=== PATIENT | male | born 1995 | race Caucasian/White ===

== ENCOUNTER 2019-03-28 01:12 | Inpatient (IN) | payer OTHER ==
[~2019-03-28] VITALS: Ht 182.9 cm; Wt 72.6 kg
[2019-03-28 01:46] LABS: APPEARANCE CLEAR (CLEAR); BILIRUBIN NEGATIVE (NEGATIVE); COLOR YELLOW (YELLOW); GLUCOSE NEGATIVE (NEGATIVE); KETONE LARGE mg/dL (NEGATIVE); NITRITE NEGATIVE (NEGATIVE); PROTEIN TRACE mg/dL (NEGATIVE); UROBILINOGEN NORMAL (NORMAL)
[2019-03-28 01:51] LABS: BACTERIA FEW /hpf (NEGATIVE); EPITHELIAL CELLS 0-5 /hpf (0-5); MUCUS >1+ /lpf (NONE SEEN); RED CELLS - URINE 0-5 /hpf (0-5); WHITE CELLS - URINE 0-5 /hpf (NEGATIVE)
[2019-03-28 01:52] LABS: BASOPHILS 0.1 % (0-2); EOSINOPHILS 0.9 % (0-7); HEMATOCRIT 44.5 % (42.0-54.0); HEMOGLOBIN 15.8 g/dL (13.5-17.5); IMMATURE GRANULOCYTES 0.2 % (0-5); LYMPHOCYTES 12.7 % (15-50); MCH 32.2 pg (26.0-34.0); MCHC 35.5 g/dL (31.0-37.0); MCV 90.8 fL (80.0-100.0); MEAN PLATELET VOLUME 8.9 fL (7.4-10.4); MONOCYTES 9.9 % (2-11); NEUTROPHILS 76.2 % (40-80); PLATELET COUNT 208 10x3/uL (130-400); RDW 13.1 % (11.5-14.5); WBC 12.8 10x3/uL (4.8-10.8)
[2019-03-28 02:04] LABS: CALC OSMOLALITY 268 mosm/kg (275-300); CALCIUM 8.9 mg/dL (8.5-10.1); CARBON DIOXIDE 25.9 mmol/L (21.0-32.0); CHLORIDE - SERUM 100 mmol/L (98-107); CREATININE - SERUM 0.9 mg/dL (0.6-1.3); GLUCOSE 108 mg/dL (74-106); POTASSIUM - SERUM 3.3 mmol/L (3.5-5.1); SODIUM 135 mmol/L (136-145); UREA NITROGEN 8 mg/dL (7-18); eGFR NON AFRICAN AMERICAN > 90 mL/min (90-120)
[2019-03-28 02:09] LABS: ALBUMIN 3.9 g/dL (3.4-5.0); ALKALINE PHOSPHATASE 56 U/L (30-120); ALT (SGPT) 30 U/L (10-68); BILIRUBIN - TOTAL 0.95 mg/dL (0.2-1.3); LIPASE 69 U/L (73-393); PROTEIN - SERUM 7.6 g/dL (6.4-8.2)
--- NOTE | 2019-03-28 02:20 | NUR ---
PT AMBULATING BACK TO ROOM AFTER USING RESTROOM. REPORTS URINATING. SLOW, STEADY GAIT NOTED. MEDICATIONS GIVEN PER EMAR. PT DENIES CURRENT NEEDS. EDP IN ROOM. WILL CONTINUE TO MONITOR.
[2019-03-28 03:41] VITALS: BP 137/65
--- NOTE | 2019-03-28 03:41 | NUR ---
PT RESTING ON BED, WATCHING TV. LIGHTS LOW FOR PT COMFORT. PT AND MOTHER UPDATED ON PLAN OF CARE.
[2019-03-28 05:09] VITALS: BP 106/59; BMI 21.7
--- NOTE | 2019-03-28 07:54 | NUR ---
ALERT AND ORIENTED. LUNGS CLEAR BILATERALLY. HEART SOUNDS S1 AND S2 HEARD IN ALL JADE. BOWEL SOUNDS ACTIVE X 4. IV TO RFA PATENT WITHOUT REDNESS. SKIN INTACT WITHOUT REDNESS. BED LOW. CALL KEYES AND PERSONAL ITEMS IN REACH. WILL CONTINUE TO MONITOR.
[2019-03-28 09:28] VITALS: BP 104/50
--- NOTE | 2019-03-28 11:40 | NUR ---
RESTING IN BED. DENIES NEEDS. WILL CONTINUE TO MONITOR.
[2019-03-28 12:45] VITALS: BP 107/74
[2019-03-28 17:17] VITALS: BP 120/76
--- NOTE | 2019-03-28 18:02 | NUR ---
RESTING IN BED. DENIES NEEDS. CALL KEYES AND PERSONAL ITEMS IN REACH.
[2019-03-28 23:09] VITALS: BP 123/68
--- NOTE | 2019-03-29 02:35 | NUR ---
PT RESTING IN BED. EYES CLOSED. NO SIGNS OF DISTRESS. BREATHING EVEN AND UNLABORED. IV SITE RT FA DRESSING CLEAN DRY AND INTACT. NO SIGNS OF INFECTION OR INFULTRATION. LUNG SOUNDS CLEAR. BOWEL SOUNDS ACTIVE. SKIN CLEAN DRY AND INTACT. ABD TENDERNESS. WILL CONTINUE PLAN OF CARE. CALL LIGHT IN REACH. BED LOWERED AND LOCKED. BED RAILS UPX2.
[2019-03-29 02:53] VITALS: BP 109/61
--- NOTE | 2019-03-29 05:02 | NUR ---
I have reviewed this patient and I concur with the Shift Assessment completed by the Licensed Practical Nurse today this shift.
[2019-03-29 05:22] LABS: BASOPHILS 0.1 % (0-2); EOSINOPHILS 0.4 % (0-7); HEMATOCRIT 43.5 % (42.0-54.0); HEMOGLOBIN 15.1 g/dL (13.5-17.5); IMMATURE GRANULOCYTES 0.3 % (0-5); LYMPHOCYTES 11.3 % (15-50); MCH 32.4 pg (26.0-34.0); MCHC 34.7 g/dL (31.0-37.0); MEAN PLATELET VOLUME 9.5 fL (7.4-10.4); MONOCYTES 9.2 % (2-11); NEUTROPHILS 78.7 % (40-80); PLATELET COUNT 202 10x3/uL (130-400); RBC 4.66 10x6/uL (4.20-6.10); RDW 13.4 % (11.5-14.5); WBC 11.6 10x3/uL (4.8-10.8)
[2019-03-29 05:41] LABS: MCV 93.3 fL (80.0-100.0)
[2019-03-29 05:47] LABS: ALBUMIN 3.2 g/dL (3.4-5.0); ALKALINE PHOSPHATASE 53 U/L (30-120); ALT (SGPT) 24 U/L (10-68); AMYLASE - SERUM 21 U/L (25-115); BILIRUBIN - TOTAL 0.55 mg/dL (0.2-1.3); CALC OSMOLALITY 274 mosm/kg (275-300); CALCIUM 9.2 mg/dL (8.5-10.1); CARBON DIOXIDE 25.9 mmol/L (21.0-32.0); CHLORIDE - SERUM 102 mmol/L (98-107); CREATININE - SERUM 0.9 mg/dL (0.6-1.3); GLUCOSE 78 mg/dL (74-106); PROTEIN - SERUM 7.3 g/dL (6.4-8.2); SODIUM 139 mmol/L (136-145); UREA NITROGEN 6 mg/dL (7-18); eGFR NON AFRICAN AMERICAN > 90 mL/min (90-120)
[2019-03-29 05:54] LABS: LIPASE 105 U/L (73-393); POTASSIUM - SERUM 4.4 mmol/L (3.5-5.1)
[2019-03-29 05:57] VITALS: BP 99/62
--- NOTE | 2019-03-29 07:45 | NUR ---
ALERT AND ORIENTED. LUNGS CLEAR BILATERALLY. HEART SOUNDS S1 AND S2 HEARD IN ALL JADE. BOWEL SOUNDS ACTIVE X 4. SKIN INTACT WITHOUT REDNESS. IV TO RFA PATENT WITHOUT REDNESS. DENIES NEEDS. BED LOW. CALL KEYES AND PERSONAL ITEMS IN REACH. WILL CONTINUE TO MONITOR.
[2019-03-29 09:04] VITALS: BP 128/68
--- NOTE | 2019-03-29 10:56 | MORECARE ---
CASE MANAGEMENT DISCHARGE SUMMARY PATIENT: KARLY PLATA UNIT: [id number] ADM DATE: 03/28/19 AGE: 23 : [birth year] SEX: M ROOM/BED: D.2220 AUTHOR: EDWARD,DOC PHYSICIAN: REFERRING PHYSICIAN: CHARLOTTE TRIANA MD DATE OF SERVICE: 03/29/19 Discharge Plan Patient Name: KARLY PLATA Facility: [facility]:[place] : 1995 Planned Disposition: Home or Self Care Anticipated Discharge Date: Discharge Date: Expected LOS: Initial Reviewer: [email or web address] Initial Review Date: 03/28/2019 Generated: 03/29/19 11:56 am Comments DCP- Discharge Planning Updated by [email or web address]: Sydney Willingham on 03/29/19 9:[address] Patient Name: KARLY PLATA Admission Status: ER Accout number: [id number] Admission Date: 03-28-2019 : 1995 Admission Diagnosis: Attending: CHARLOTTE TRIANA Current LOS: 1 Anticipated DC Date: Planned Disposition: Home or Self Care Primary Insurance: [employer] PPO Discharge Planning Comments: CM met with patient to complete initial dc planning assessment. CM educated patient on the CM role and verbal consent given by patient to complete assessment. Patient lives at home by himself where he is independent with his care. At discharge patient plans to go to his mothers home to recover and feels this is a safe discharge. CM discussed availability of home health, rehab services, and medical equipment. Patient denied known discharge needs at this time. CM will continue to follow and will assist as needed with dc plans/needs. Software Firmware Engineer: Sydney Willingham DCPIA - Discharge Planning Initial Assessment Updated by [email or web address]: Sydney Willingham on 03/29/19 10:51 am * Is the patient Alert and Oriented? Yes * How many steps to enter\exit or inside your home? * PCP NONE * Pharmacy [facility] [address] * Preadmission Environment Home Alone * ADLs Independent * Equipment None * List name and contact numbers for known caregivers / representatives who currently or will assist patient after discharge: ZACH (MOTHER)[phone] * Verbal permission to speak to the caregivers and representatives has been obtained from the patient. N/A * Community resources currently utilized None * Additional services required to return to the preadmission environment? No * Can the patient safely return to the preadmission environment? Yes * Has this patient been hospitalized within the prior 30 days at any hospital? No Patient Name: KARLY PLATA Page [phone] at 1056 All edits/amendments must be made on the electronic document DICTATION DATE: 03/29/191055 VENTILATION EQUIPMENT TENDER: [email or web address] 03/29/19 1056 RPT#: [id number] DC DATE: STATUS: ADM IN [facility] [address] [place] [address] END OF REPORT
[2019-03-29 13:00] VITALS: Ht 182.9 cm; Wt 72.6 kg
[2019-03-29 13:41] VITALS: BP 118/71
[2019-03-29 17:51] VITALS: BP 120/66
--- NOTE | 2019-03-29 18:18 | NUR ---
RESTING IN BED. DENIES NEEDS. BED LOW. CALL KEYES AND PERSONAL ITEMS IN REACH.
[2019-03-29 20:00] VITALS: BP 123/75
--- NOTE | 2019-03-30 03:32 | NUR ---
PT RESTING IN BED. EYES CLOSED. NO SIGNS OF DISTRESS. BREATHING EVEN AND UNLABORED. IV SITE RT FA DRESSING CLEAN DRY AND INTACT. NO SIGNS OF INFECTION OR INFULTRATION. LUNG SOUNDS CLEAR. SKIN CLEAN DRY AND INTACT. WILL CONTINUE PLAN OF CARE. CALL LIGHT IN REACH. BED LOWERED AND LOCKED. BED RAILS UPX2.
[2019-03-30 04:00] VITALS: BP 103/59
--- NOTE | 2019-03-30 04:59 | NUR ---
I have reviewed this patient and I concur with the Shift Assessment completed by the Licensed Practical Nurse today this shift.
[2019-03-30 09:16] VITALS: BP 112/69
--- NOTE | 2019-03-30 10:00 | NUR ---
PT RESTING IN BED WITH EYES CLOSED. RESP EVEN AND UNLABORED. PT AWAKENS WITH NAME CALLED. DENIES PAIN AT THIS TIME. IV TO RIGHT FOREARM WITH NS @ 75ML/HR INFUSING VIA PUMP. SITE WITHOUT REDNESS OR EDEMA. DENIES NEEDS AT THIS TIME. CL WITHIN REACH. ENCOURAGED TO CALL WITH NEEDS. CONTINUE POC
[2019-03-30 10:19] LABS: BASOPHILS 0.2 % (0-2); HEMATOCRIT 42.5 % (42.0-54.0); HEMOGLOBIN 14.6 g/dL (13.5-17.5); IMMATURE GRANULOCYTES 0.2 % (0-5); LYMPHOCYTES 17.2 % (15-50); MCH 32.4 pg (26.0-34.0); MCHC 34.4 g/dL (31.0-37.0); MCV 94.2 fL (80.0-100.0); NEUTROPHILS 74.4 % (40-80); PLATELET COUNT 227 10x3/uL (130-400); RBC 4.51 10x6/uL (4.20-6.10); RDW 13.4 % (11.5-14.5)
[2019-03-30 10:23] LABS: WBC 5.8 10x3/uL (4.8-10.8)
[2019-03-30 10:43] LABS: CALCIUM 8.9 mg/dL (8.5-10.1); CARBON DIOXIDE 31.2 mmol/L (21.0-32.0); CHLORIDE - SERUM 103 mmol/L (98-107); POTASSIUM - SERUM 4.1 mmol/L (3.5-5.1); SODIUM 141 mmol/L (136-145); eGFR NON AFRICAN AMERICAN > 90 mL/min (90-120)
[2019-03-30 10:45] LABS: CALC OSMOLALITY 280 mosm/kg (275-300); GLUCOSE 134 mg/dL (74-106); UREA NITROGEN 8 mg/dL (7-18)
[2019-03-30 12:23] VITALS: BP 110/60
[2019-03-30] MEDS ORDERED: LEVOFLOXACIN500 MG PO (13:41)
[2019-03-30] MEDS ORDERED: FLAGYL500 MG PO (13:42)
--- NOTE | 2019-03-30 15:12 | NUR ---
PT DISCHARGE INSTRUCTIONS REVIEWED WITH PT. DISCUSSED CONTINUATION OF ANTIBIOTICS UPON DISCHARGE. DISCUSSED FOLLOW UP APPOINTMENT WITH DR TRIANA. IV D/C'D FROM RIGHT FOREARM, CATH INTACT.
--- NOTE | 2019-03-31 11:31 | MORECARE ---
CASE MANAGEMENT DISCHARGE SUMMARY PATIENT: KARLY PLATA UNIT: [id number] ADM DATE: 03/28/19 AGE: 23 : [birth year] SEX: M ROOM/BED: D.2220 AUTHOR: EDWARD,DOC PHYSICIAN: REFERRING PHYSICIAN: CHARLOTTE TRIAAN MD DATE OF SERVICE: 03/31/19 Discharge Plan Patient Name: KARLY PLATA Facility: [facility]:[place] : 1995 Planned Disposition: Home or Self Care Anticipated Discharge Date: Discharge Date: 03/30/2019 Expected LOS: 0 Initial Reviewer: [email or web address] Initial Review Date: 03/28/2019 Generated: 03/31/19 12:30 pm Comments DCP- Discharge Planning Updated by [email or web address]: Sydney Willingham on 03/29/19 9:[address] Patient Name: KARLY PLATA Admission Status: ER Accout number: [id number] Admission Date: 03-28-2019 : 1995 Admission Diagnosis: Attending: CHARLOTTE TRIANA Current LOS: 1 Anticipated DC Date: Planned Disposition: Home or Self Care Primary Insurance: meets PPO Discharge Planning Comments: CM met with patient to complete initial dc planning assessment. CM educated patient on the CM role and verbal consent given by patient to complete assessment. Patient lives at home by himself where he is independent with his care. At discharge patient plans to go to his mothers home to recover and feels this is a safe discharge. CM discussed availability of home health, rehab services, and medical equipment. Patient denied known discharge needs at this time. CM will continue to follow and will assist as needed with dc plans/needs. Test Carrier: Sydney Willingham DCPIA - Discharge Planning Initial Assessment Updated by [email or web address]: Sydney Willingham on 03/29/19 10:51 am * Is the patient Alert and Oriented? Yes * How many steps to enter\exit or inside your home? * PCP NONE * Pharmacy [facility] [address] * Preadmission Environment Home Alone * ADLs Independent * Equipment None * List name and contact numbers for known caregivers / representatives who currently or will assist patient after discharge: ZACH (MOTHER)[phone] * Verbal permission to speak to the caregivers and representatives has been obtained from the patient. N/A * Community resources currently utilized None * Additional services required to return to the preadmission environment? No * Can the patient safely return to the preadmission environment? Yes * Has this patient been hospitalized within the prior 30 days at any hospital? No Last DP export: 03/29/19 9:56 a Patient Name: KARLY PLATA Page [phone] at 1131 All edits/amendments must be made on the electronic document DICTATION DATE: 03/31/19 1130 AUTO COLLISION REPAIR INSTRUCTOR: DM 03/31/19 1130 RPT#: [id number] DC DATE:03/30/19 STATUS: DIS IN [facility] [address] [place] [address] END OF REPORT
== END 2019-03-30 15:31 | disposition home or self-care (01) | DRG 392 ==
LOC: D.ER 01:12 → D.MS 03:45
PROVIDERS: Family Medicine; Internal Medicine Gastroenterology; ADMIT Family Medicine; ATTEND Family Medicine
DX: K57.32 Diverticulitis of large intestine without perforation or abscess without bleeding (principal)